=== PATIENT | female | born 1970 | race Caucasian/White ===

== ENCOUNTER 2018-01-24 17:07 | Emergency (ER) | payer MEDICAID, OTHER ==
--- NOTE | 2018-01-24 17:33 | EDPHY ---
H & P Stated Complaint: l flank pain this week intermittently n/v Time Seen by Provider: 01/24/18 17:30 HPI/ROS: CHIEF COMPLAINT: Intermittent left flank pain HISTORY OF PRESENT ILLNESS: The patient presents the ED for evaluation of intermittent left flank pain. The patient denies fever or dysuria. She has a history of rheumatoid arthritis which she is managing through an extrahepatic doctor. She has been experiencing swelling in the wrists and feet with her current rheumatoid arthritis flare. The patient takes no regular prescription medications. The patient has no prior history of nephrolithiasis. She does have a prior history of pyelonephritis. The patient denies any fever, cough or congestion. She denies any additional acute complaints. REVIEW OF SYSTEMS: A comprehensive 10 point review of systems is otherwise negative aside from elements mentioned in the history of present illness. Source: Patient Exam Limitations: No limitations - Personal History LMP (Females 10-55): 8-14 Days Ago Current Tetanus/Diphtheria Vaccine: Yes Tetanus Vaccine Date: < 10 years - Medical/Surgical History Hx Asthma: Yes Hx Chronic Respiratory Disease: No Hx Diabetes: No Hx Cardiac Disease: No Hx Renal Disease: No Hx Cirrhosis: No Hx Alcoholism: No Hx HIV/AIDS: No Hx Splenectomy or Spleen Trauma: No Other PMH: left knee surgery, right knee surgery, discectomy RA - Social History Smoking Status: Former smoker - Physical Exam Exam: General Appearance: Alert, no distress Eyes: Pupils equal and round no pallor or injection ENT, Mouth: Mucous membranes moist Respiratory: There are no retractions, lungs are clear to auscultation Cardiovascular: Regular rate and rhythm Gastrointestinal: Abdomen is soft and nontender, no masses, bowel sounds normal Neurological: 5/5 strength all 4 extremities Skin: Warm and dry, no rashes Musculoskeletal: Neck is supple nontender, minimal tenderness to palpation noted in the left paraspinal musculature Extremities: symmetrical, full range of motion Constitutional: Initial Vital Signs Temperature (C) 36.8 C 01/24/18 17:21 Heart Rate 84 01/24/18 17:21 Respiratory Rate 18 01/24/18 17:21 Blood Pressure 126/85 H 01/24/18 17:21 O2 Sat (%) 98 01/24/18 17:21 O2 Delivery Mode Room Air Allergies/Adverse Reactions: erythromycin lactobionate [From Erythrocin] Allergy (Unknown, Verified 01/24/18 17:20) morphine Allergy (Unknown, Verified 01/24/18 17:20) Other-Enter Comments Sulfa (Sulfonamide Antibiotics) Allergy (Unknown, Verified 01/24/18 17:20) Vomiting acetaminophen [From Vicodin] Allergy (Verified 01/24/18 17:20) hydrocodone bitartrate [From Vicodin] Allergy (Verified 01/24/18 17:20) Itching Home Medications: Medication Instructions Recorded Supplements 01/24/18 Medical Decision Making ED Course/Re-evaluation: The patient presents to the ED for evaluation of intermittent left flank pain. The patient also has a history of rheumatoid arthritis not currently treated with traditional medical therapy. In the ED the patient was noted to have only minimal CVA tenderness on exam. Urinalysis demonstrates no evidence of hematuria or pyuria. The patient's laboratory studies are within normal limits. The patient is currently experiencing 1/10 discomfort. She was offered CT scan imaging however is declining secondary to concerns surrounding cost. The patient would like to go home and see if her symptoms progress which I feel is reasonable. The patient has been provided the contact number of a local field service poultry technician for further evaluation of her rheumatologic disorder. The patient is advised to return to the ED for markedly worsening symptoms or other concerns. Differential Diagnosis: Differential diagnosis considered includes pyelonephritis, nephrolithiasis, myofascial strain - Data Points Laboratory Results: Laboratory Results 01/24/18 17:56 01/24/18 17:56 01/24/18 01/24/18 01/24/18 17:56 17:56 17:10 WBC 4.36 10^3/uL 10^3/uL (3.80-9.50) RBC 4.71 10^6/uL 10^6/uL (4.18-5.33) Hgb 14.1 g/dL g/dL (12.6-16.3) Hct 41.4 % % (38.0-47.0) MCV 87.9 fL fL (81.5-99.8) MCH 29.9 pg pg (27.9-34.1) MCHC 34.1 g/dL g/dL (32.4-36.7) RDW 12.1 % % (11.5-15.2) Plt Count 279 10^3/uL 10^3/uL (150-400) MPV 9.3 fL fL (8.7-11.7) Neut % (Auto) 46.1 % % (39.3-74.2) Lymph % (Auto) 36.2 % % (15.0-45.0) [place] % (Auto) 15.1 % H % (4.5-13.0) Eos % (Auto) 1.4 % % (0.6-7.6) Baso % (Auto) 0.7 % % (0.3-1.7) Nucleat RBC Rel Count 0.0 % % (0.0-0.2) Absolute Neuts (auto) 2.01 10^3/uL 10^3/uL (1.70-6.50) Absolute Lymphs (auto) 1.58 10^3/uL 10^3/uL (1.00-3.00) Absolute Monos (auto) 0.66 10^3/uL 10^3/uL (0.30-0.80) Absolute Eos (auto) 0.06 10^3/uL 10^3/uL (0.03-0.40) Absolute Basos (auto) 0.03 10^3/uL 10^3/uL (0.02-0.10) Absolute Nucleated RBC 0.00 10^3/uL 10^3/uL (0-0.01) Immature Gran % 0.5 % % (0.0-1.1) Immature Gran # 0.02 10^3/uL 10^3/uL (0.00-0.10) Sodium 138 mEq/L mEq/L (135-145) Potassium 4.4 mEq/L mEq/L (3.5-5.2) Chloride 103 mEq/L mEq/L (97-110) Carbon Dioxide 24 mEq/l mEq/l (22-31) Anion Gap 11 mEq/L mEq/L (8-16) BUN 9 mg/dL mg/dL (7-23) Creatinine 0.7 mg/dL mg/dL (0.6-1.0) Estimated GFR > 60 Glucose 79 mg/dL mg/dL (70-100) Calcium 9.2 mg/dL mg/dL (8.5-10.4) Urine Color Urine Appearance Urine pH Ur Specific [place] Urine Protein Urine Ketones Urine Blood Urine Nitrate Urine Bilirubin Urine Urobilinogen Ur Leukocyte Esterase Urine RBC Urine WBC Ur Epithelial Cells Urine Glucose Urine Test NEGATIVE 01/24/18 17:10 WBC RBC Hgb Hct MCV MCH MCHC RDW Plt Count MPV Neut % (Auto) Lymph % (Auto) [place] % (Auto) Eos % (Auto) Baso % (Auto) Nucleat RBC Rel Count Absolute Neuts (auto) Absolute Lymphs (auto) Absolute Monos (auto) Absolute Eos (auto) Absolute Basos (auto) Absolute Nucleated RBC Immature Gran % Immature Gran # Sodium Potassium Chloride Carbon Dioxide Anion Gap BUN Creatinine Estimated GFR Glucose Calcium Urine Color PALE YELLOW Urine Appearance CLEAR Urine pH 7.0 (5.0-7.5) Ur Specific [place] 1.004 (1.002-1.030) Urine Protein NEGATIVE (NEGATIVE) Urine Ketones NEGATIVE (NEGATIVE) Urine Blood NEGATIVE (NEGATIVE) Urine Nitrate NEGATIVE (NEGATIVE) Urine Bilirubin NEGATIVE (NEGATIVE) Urine Urobilinogen NEGATIVE EU EU (0.2-1.0) Ur Leukocyte Esterase TRACE H (NEGATIVE) Urine RBC 1-3 /hpf /hpf (0-3) Urine WBC 1-3 /hpf /hpf (0-3) Ur Epithelial Cells TRACE /lpf /lpf (NONE-1+) Urine Glucose NEGATIVE (NEGATIVE) Urine Test Departure - Departure Disposition: Home, Routine, Self-Care Clinical Impression: Back pain Condition: Good Instructions: Flank Pain (ED) Additional Instructions: 1. Please return to the ED for markedly worsening symptoms. 2. Your laboratory studies and urinalysis are within normal limits. 3. You have been offered CT scan for further characterization of your pain. Please return to the ED should you reconsider your decision not to have this study performed. 4. You have been given the contact number of a local field service poultry technician, Dr. Aquino , if you would like to establish care with a traditional specialist rheumatoid arthritis. Referrals: Del Aquino MD [[facility] Primary Care Provider] - As per Instructions
[2018-01-24 18:08] LABS: PLATELET COUNT 279 10^3/uL (150-400)
[2018-01-24] MEDS ORDERED: NS 1,000 ML IV ONE (18:21)
[2018-01-24 19:21] VITALS: BP 116/87
== END 2018-01-24 19:21 | disposition home or self-care (01) ==
DX: M54.9 Dorsalgia, unspecified (principal); J45.909 Unspecified asthma, uncomplicated; Z87.891 Personal history of nicotine dependence